=== PATIENT | male | born 1980 | race African-American/Black ===

== ENCOUNTER 2018-10-17 18:57 | Emergency (ER) | payer OTHER, SELFPAY ==
[2018-10-17 19:07] VITALS: BP 156/93; PULSE 62; RESP 15; TEMP 36.6; O2SAT 95; BMI 31.8
[2018-10-17 20:26] VITALS: BP 139/98; PULSE 60; RESP 16; O2SAT 98
--- NOTE | 2018-10-17 20:27 | ED_ITS ---
HPI - Abdominal Pain <Paige Camarena PA-C - Last Filed: 10/17/18 21:45> General Chief Complaint: Abdominal Pain Stated Complaint: stomach pain Time Seen by Provider: 10/17/18 19:59 Source: patient Mode of arrival: ambulatory Limitations: no limitations History of Present Illness HPI narrative: This 37-year-old male comes in due to exacerbation of chronic abdominal pain. He states that he has recurrent midepigastric and left-sided pain for many years. He has had thorough evaluation including 2 CT scans at least and panendoscopy which he states did not show any significant findings. He states that the pain tends to be sort of a sensation food could be stuck, a deep ache, that can eventually started to throb and be painful in the left side of his back. He states that this does not seem to have any exacerbating or alleviating features such as food, empty stomach, or activity. He states that pain tends to come on later in the day, around early evening, and can last up to 5 or 6 hr, then resolved. He states that he might have pain for up to a few days, then can go for a month or 2 in between without having pain. He states that this feels like his previous pain and has no new features like fever, chills, sweats, nausea or vomiting. He denies any urinary symptoms or bowel habit changes. He denies any chest pain or dyspnea. He had some cold symptoms last week which have completely resolved. He states that sometimes Pepcid or Zantac are effective for this pain however what was most effective for him use to be GI cocktail [place]. Related Data Previous Rx's Medication Instructions Recorded famotidine [Pepcid] 20 mg PO DAILY #90 tab 10/17/18 lidocaine HCl [Lidocaine Viscous] 10 ml MM Q4-6H PRN #200 ml 10/17/18 Allergies Allergy/AdvReac Type Severity Reaction Status Date / Time No Known Drug Allergies Allergy Verified 10/17/18 19:07 Review of Systems <Paige Camarena PA-C - Last Filed: 10/17/18 21:45> Review of Systems ROS Unobtainable: All systems reviewed & are unremarkable except as noted in HPI and below PFSH <Paige Camarena PA-C - Last Filed: 10/17/18 21:45> Comment: never smoker, occ ETOH, no street drugs Exam <Paige Camarena PA-C - Last Filed: 10/17/18 21:45> Narrative Exam Narrative: GENERAL APPEARANCE: Patient sitting comfortably, in no distress. HEENT: PERRL, EOMI, conjunctivae pink, no scleral icterus, normal oropharynx NECK: Supple LUNGS: Clear to auscultation bilaterally. HEART: Rate and rhythm regular, normal S1 and S2, no S3 or S4. ABDOMEN: Soft, mild midepigastric tenderness without guarding or rebound, no tenderness elsewhere, no CVAT, nondistended, bowel sounds present x 4 quadrants , no masses palpable, no hepatosplenomegaly. EXTREMITIES: No edema, no calf tenderness DERMATOLOGIC: No jaundice or exanthem NEUROLOGIC: Alert and oriented with normal speech and gait, and coordination Initial Vital Signs Initial Vital Signs: Vital Signs Temperature 97.8 F 10/17/18 19:07 Pulse Rate 62 10/17/18 19:07 Respiratory Rate 15 10/17/18 19:07 Blood Pressure 156/93 H 10/17/18 19:07 Pulse Oximetry 95 10/17/18 19:07 <Dennis Hay MD - Last Filed: 10/18/18 03:45> Initial Vital Signs Initial Vital Signs: Vital Signs Temperature 97.8 F 10/17/18 19:07 Pulse Rate 62 10/17/18 19:07 Respiratory Rate 15 10/17/18 19:07 Blood Pressure 156/93 H 10/17/18 19:07 Pulse Oximetry 95 10/17/18 19:07 Course <Paige Camarena PA-C - Last Filed: 10/17/18 21:45> Additional Information: Patient's pain is chronic, intermittent, has had thorough workup in the past, and he feels like his pain tonight is similar. He responded to GI cocktail usual. Likely atypical reflux. Advised trial of daily Pepcid since he has not done that in the past but sometimes helps pain. Given a prescription for viscous lidocaine to mix with Maalox as needed and he will follow up with PCP next week. He agreed to return if any worsening symptoms again or new symptoms such as fever or vomiting. Orders Ordered: Discontinued Medications Al Hydrox/Mg Hydrox/Simethicone 20 ml/ Lidocaine HCl 15 ml 0 ml PO NOW ONE Stop: 10/17/18 20:20 Last Admin: 10/17/18 20:29 Dose: 35 ml Vital Signs - 8 hr 10/17/18 20:26 Pulse Rate 60 Respiratory Rate 16 Blood Pressure [Left Arm] 139/98 H Pulse Oximetry 98 <Dennis Hay MD - Last Filed: 10/18/18 03:45> Orders Ordered: Discontinued Medications Al Hydrox/Mg Hydrox/Simethicone 20 ml/ Lidocaine HCl 15 ml 0 ml PO NOW ONE Stop: 10/17/18 20:20 Last Admin: 10/17/18 20:29 Dose: 35 ml Vital Signs - 8 hr 10/17/18 20:26 Pulse Rate 60 Respiratory Rate 16 Blood Pressure [Left Arm] 139/98 H Pulse Oximetry 98 MDM - Abdominal Pain <Paige Camarena PA-C - Last Filed: 10/17/18 21:45> Lab Data Point of care testing: Urine Dip Bedside Urine Glucose Negative Bedside Urine Bilirubin - Negative Bedside Urine Ketone - Negative Urine Specific [place] 1.025 Bedside Urine Occult Blood - Negative Bedside Urine pH 6.0 Bedside Urine Protein - Negative Bedside Urine Urobilinogen - Negative Bedside Urine Nitrite - Negative Bedside Urine Leukocytes - Negative Esterase <Dennis Hay MD - Last Filed: 10/18/18 03:45> Lab Data Point of care testing: Urine Dip Bedside Urine Glucose Negative Bedside Urine Bilirubin - Negative Bedside Urine Ketone - Negative Urine Specific [place] 1.025 Bedside Urine Occult Blood - Negative Bedside Urine pH 6.0 Bedside Urine Protein - Negative Bedside Urine Urobilinogen - Negative Bedside Urine Nitrite - Negative Bedside Urine Leukocytes - Negative Esterase Discharge Plan Departure Patient Disposition: Home Clinical Impression: Esophagitis, reflux Discharge Date/Time: 10/17/18 21:15 Interventions: ED Discharge Assessment Last Done: 10/17/18 21:15 Instructions: DI for Esophagitis Activity Restrictions/Additional Instructions: From what you have described to me tonight, I think you have of a form of acid reflux (commonly known as heartburn) that causes irritation in your esophagus off and on. It is reassuring that you have had such a thorough workup in the past and that your pain tonight feels very similar. It is also reassuring that is has responded to the GI cocktail as it usually does. I have sent a prescription for the numbing part of the GI cocktail, lidocaine, to your pharmacy for you. Please mix that with a dose of [id number] liquid Maalox and then you can take it as needed for when this pain comes on. Also please try taking a dose of Pepcid (20 mg famotidine [id number]) once daily (every day!) to see if this helps to prevent your symptoms. I did try sending a prescription for the Pepcid in to your pharmacy as it may be covered for you, so please check there before buying any. Please follow-up with your primary care provider within the next week to assess your progress. You should return as we talked about if you have any acutely worsening symptoms, or new symptoms such as vomiting or fever with this pain. Prescriptions: New lidocaine HCl [Lidocaine Viscous] 2 % solution 10 ml MM Q4-6H PRN (Reason: esophageal pain) Qty: 200 RF: 0 famotidine [Pepcid] 20 mg tablet 20 mg PO DAILY Qty: 90 RF: 0 Referrals: [facility] [Provider Group] <Dennis Hay MD - Last Filed: 10/18/18 03:45> Cosign ED Attending [place] Attestation: I was in the ER at the time of this patient's care. I was available for verbal consultation or to see the patient directly if needed. I agree with the PA's assessment and treatment plan.
[2018-10-17] MEDS: MAG HYDROX/ALUMINUM/SIMETH SUS 20 ML, LIDOCAINE VISCOUS 2% 15 ML PO (20:29)
== END 2018-10-17 21:15 | disposition home or self-care (01) ==
PROVIDERS: Emergency Provider Internal Medicine
DX: K20.9 Esophagitis, unspecified (principal); K21.0 Gastro-esophageal reflux disease with esophagitis
CPT/HCPCS: 81003; 99282